=== PATIENT | female | born 1985 | race Caucasian/White ===

== ENCOUNTER → 2023-09-27 13:17 | Outpatient (REF) | payer OTHER, SELFPAY | LOC: PNTC 13:17 | PROVIDERS: ATTENDING PHYSICIAN Obstetrics & Gynecology | DX: Z36.0 Encounter for antenatal screening for chromosomal anomalies (principal); O09.519 Supervision of elderly primigravida, unspecified trimester | CPT/HCPCS: 76811 ==

== ENCOUNTER → 2023-10-17 17:29 | Outpatient (REF) | payer OTHER, SELFPAY | LOC: PNTC 17:29 | PROVIDERS: ATTENDING PHYSICIAN Obstetrics & Gynecology | DX: Z36.83 Encounter for fetal screening for congenital cardiac abnormalities (principal) | CPT/HCPCS: 76815 ==

== ENCOUNTER 2024-02-18 02:34 | Inpatient (IN) | payer OTHER, SELFPAY ==
[2024-02-18 03:13] VITALS: BP 146/84; BMI 34.4
[2024-02-18 03:36] LABS: % Basophils 0.5 % (0-2); % Eosinophils 1.3 % (0-6); % Immature Granulocytes 0.9 % (0-0.5); % Lymphocytes 23.7 % (20.5-51.1); % Monocytes 7.3 % (1.7-9.3); % Neutrophils 66.3 % (42.2-75.2); Absolute Basophils 0.1 10^3/uL (0-0.2); Absolute Eosinophils 0.1 10^3/uL (0-0.7); Absolute Immature Granulocytes 0.1 10^3/uL (0-0.05); Absolute Lymphocytes 2.6 10^3/uL (1.2-3.4); Absolute Monocytes 0.8 10^3/uL (0.1-0.6); Absolute Neutrophils 7.3 10^3/uL (1.4-6.5); Hematocrit 30.8 % (37.0-47.0); Hemoglobin 9.8 g/dL (12.0-16.0); Mean Corp Hgb Conc. 31.8 g/dL (33.0-37.0); Mean Corpuscular Hgb 26.4 pg (27.0-31.0); Mean Platelet Volume 11.7 fL (7.4-10.4); Nucleated Red Blood Cells % 0 %; Platelet Count 269 10^3/uL (130-400); Red Blood Cell Count 3.71 10^6/uL (4.20-5.40); Red Cell Dist. Width 15.1 % (11.5-14.5)
[2024-02-18 03:50] LABS: ALT (SGPT) 15 U/L (0-35); AST (SGOT) 23 U/L (14-36); Albumin 3.7 g/dl (3.5-5.0); Alkaline Phosphatase 212 U/L (38-126); Blood Urea Nitrogen 14 mg/dl (7-17); Calcium 10.7 mg/dl (8.4-10.2); Carbon Dioxide 21 mmol/L (22-30); Chloride 104 mmol/L (98-107); Estimated Creatinine Clearance 105 ml/min; Glucose 89 mg/dl (70-99); Potassium 4.3 mmol/L (3.5-5.1); Sodium 137 mmol/L (135-145); Total Bilirubin 0.2 mg/dl (0.2-1.3); Total Protein 6.9 g/dl (6.3-8.2); eGFR > 60.00
[2024-02-18] MEDS: SYNTHROID 25 MCG PO (09:24)
[2024-02-18] MEDS: PITOCIN 30 UNITS/NSS 500 ML IV (09:25)
[2024-02-18] MEDS: LR 1000 IV ×2 (11:37→16:25)
[2024-02-18] MEDS: SUBLIMAZE 100 MCG EPIDURAL (12:31)
[2024-02-18] MEDS: FENTANYL/BUPIVACAINE 100 EPIDURAL ×2 (12:31→21:05)
[2024-02-19] MEDS: TYLENOL 1000 MG PO (02:28)
[2024-02-19] MEDS: ANCEF 10 IV (02:28)
[2024-02-19] MEDS: BICITRA 30 ML PO (02:28)
[2024-02-19] MEDS: ZITHROMAX INFUSION 250 IV (02:32)
[2024-02-19 03:20] LABS: B.E. Cord ABG -4.1 mMOL/L; Cord ABG Comment CORD BLOOD; HCO3 Cord ABG 21.6 mmol/L; O2 Saturation % Cord ABG 43.7 %; PCO2 Cord ABG 41 mmHg; PO2 Cord ABG 21 mmHg; pH Cord ABG 7.33
[2024-02-19 03:23] LABS: Cord ABG Comment CORD BLOOD
[2024-02-19 03:24] LABS: HCO3 Cord ABG 24.6 mmol/L; O2 Saturation % Cord ABG 18.9 %; PCO2 Cord ABG 56 mmHg; PO2 Cord ABG 12 mmHg; pH Cord ABG 7.25
--- NOTE | 2024-02-19 03:47 | W.IMMPOSTOP ---
Surgical Immed Post Op Note
-
Primary Surgeon: Magui Dominguez DO
Assisting Surgeon: Jeanne Kiser, malted milk supervisor
Pre-op Diagnosis: IUP at 40+4wks, intolerance of labor, inability to augment, Prolonged rupture of membranes, gestational hypertension, meconium-stained fluid
Post-op Diagnosis: same as above
Procedure Performed: PLTCS
Anesthesia Type: Spinal
Specimen / Cultures: Placenta; cord gases: 7.25, BE -4 and 7.33, BE -4.1
Estimated Blood Loss: 475ml
Complications: none
Operative Findings:normal uterus, tubes and ovaries. Female fetus in the cephalic presentation, LOP position. No nuchal cord. Apgars 8/9. Weight 8lbs 6oz. Thin meconium present.
Rick Dominguez DO
[2024-02-19 07:37] LABS: ALT (SGPT) 15 U/L (0-35); AST (SGOT) 26 U/L (14-36); Albumin 3.3 g/dl (3.5-5.0); Alkaline Phosphatase 197 U/L (38-126); Blood Urea Nitrogen 12 mg/dl (7-17); Calcium 8.9 mg/dl (8.4-10.2); Carbon Dioxide 20 mmol/L (22-30); Chloride 104 mmol/L (98-107); Estimated Creatinine Clearance 105 ml/min; Glucose 134 mg/dl (70-99); Potassium 4.4 mmol/L (3.5-5.1); Sodium 136 mmol/L (135-145); Total Bilirubin 0.3 mg/dl (0.2-1.3); Total Protein 6.4 g/dl (6.3-8.2); eGFR > 60.00
[2024-02-19] MEDS: SYNTHROID PO (07:48)
--- NOTE | 2024-02-19 07:59 | W.PN.ANS.POP ---
Anesthesia Post Operative
- Anesthesia Post Op Note
Vital Signs Stable-See Nursing Note: Yes
Airway Patent: Yes
Adequate Pain Control: Yes
Change in Mental Status: No
Current Postoperative Nausea & Vomiting: No
Anesthesia Complications: No
General Anesthetic Recall: No
Unplanned Admission: No
Post Op Hydration Adequate: Yes
[2024-02-19] MEDS: SENOKOT-S 1 TABLET PO (08:00)
[2024-02-19] MEDS: MYLICON 80 MG PO (08:00)
[2024-02-19] MEDS: SYNTHROID 25 MCG PO (08:00)
[2024-02-19] MEDS: PRENATAL PLUS 1 TABLET PO (08:00)
[2024-02-19] MEDS: TORADOL 15 MG IV ×3 (10:23→20:25)
[2024-02-19 11:45] LABS: Protein/creatinine Ratio 0.1; Urine Protein 24 mg/dl
[2024-02-19 14:50] LABS: Hematocrit 29.9 % (37.0-47.0); Hemoglobin 9.7 g/dL (12.0-16.0); Mean Corp Hgb Conc. 32.4 g/dL (33.0-37.0); Mean Corpuscular Volume 83.3 fL (81.0-99.0); Mean Platelet Volume 11.8 fL (7.4-10.4); Platelet Count 284 10^3/uL (130-400); Red Blood Cell Count 3.59 10^6/uL (4.20-5.40); Red Cell Dist. Width 15.4 % (11.5-14.5); White Blood Cell Count 21.8 10^3/uL (4.8-10.8)
[2024-02-19] MEDS: TRANDATE 200 MG PO ×2 (14:56→20:25)
[2024-02-19 15:03] LABS: ALT (SGPT) 17 U/L (0-35); AST (SGOT) 31 U/L (14-36); Albumin 3.4 g/dl (3.5-5.0); Alkaline Phosphatase 159 U/L (38-126); Blood Urea Nitrogen 15 mg/dl (7-17); Calcium 9.1 mg/dl (8.4-10.2); Carbon Dioxide 22 mmol/L (22-30); Chloride 102 mmol/L (98-107); Estimated Creatinine Clearance 93 ml/min; Glucose 166 mg/dl (70-99); Potassium 4.3 mmol/L (3.5-5.1); Sodium 136 mmol/L (135-145); Total Bilirubin 0.3 mg/dl (0.2-1.3); Total Protein 6.5 g/dl (6.3-8.2); eGFR > 60.00
[2024-02-20] MEDS: TORADOL 15 MG IV (02:44)
[2024-02-20] MEDS: SYNTHROID 25 MCG PO (06:44)
[2024-02-20] MEDS: PRENATAL PLUS 1 TABLET PO (07:42)
[2024-02-20] MEDS: TRANDATE 200 MG PO ×2 (07:42→20:20)
[2024-02-20] MEDS: TYLENOL 650 MG PO ×3 (09:09→21:30)
[2024-02-20] MEDS: MOTRIN 600 MG PO ×3 (09:09→21:30)
[2024-02-20] MEDS: SENOKOT-S 1 TABLET PO (09:10)
[2024-02-20] MEDS: MYLICON 80 MG PO (14:53)
[2024-02-20] MEDS: FEOSOL 325 MG PO (20:13)
[2024-02-21] MEDS: TYLENOL 650 MG PO ×4 (05:10→23:21)
[2024-02-21] MEDS: SYNTHROID 25 MCG PO (05:10)
[2024-02-21] MEDS: MOTRIN 600 MG PO ×4 (05:10→23:21)
[2024-02-21] MEDS: FEOSOL 325 MG PO ×2 (08:02→20:26)
[2024-02-21] MEDS: PRENATAL PLUS 1 TABLET PO (08:02)
[2024-02-21] MEDS: SENOKOT-S 1 TABLET PO (08:02)
[2024-02-21] MEDS: TRANDATE 200 MG PO ×2 (08:07→20:26)
[2024-02-21 12:38] LABS: Syphilis/T. pallidum Ab Reflex Negative (Negative)
[2024-02-21] MEDS: MYLICON 80 MG PO (14:56)
[2024-02-22] MEDS: SYNTHROID 25 MCG PO (05:33)
[2024-02-22] MEDS: TRANDATE 400 MG PO ×2 (08:15→20:19)
[2024-02-22] MEDS: MOTRIN 600 MG PO ×3 (08:16→20:58)
[2024-02-22] MEDS: FEOSOL 325 MG PO ×2 (08:16→20:18)
[2024-02-22] MEDS: SENOKOT-S 1 TABLET PO (08:16)
[2024-02-22] MEDS: MYLICON 80 MG PO (08:16)
[2024-02-22] MEDS: TYLENOL 650 MG PO ×3 (08:17→20:57)
[2024-02-22] MEDS: PRENATAL PLUS 1 TABLET PO (08:17)
[2024-02-22 11:41] LABS: % Basophils 0.4 % (0-2); % Eosinophils 2.7 % (0-6); % Immature Granulocytes 1.4 % (0-0.5); % Lymphocytes 23.7 % (20.5-51.1); % Monocytes 5.5 % (1.7-9.3); % Neutrophils 66.3 % (42.2-75.2); Absolute Eosinophils 0.3 10^3/uL (0-0.7); Absolute Immature Granulocytes 0.1 10^3/uL (0-0.05); Absolute Lymphocytes 2.2 10^3/uL (1.2-3.4); Absolute Monocytes 0.5 10^3/uL (0.1-0.6); Absolute Neutrophils 6.1 10^3/uL (1.4-6.5); Hematocrit 28.3 % (37.0-47.0); Hemoglobin 8.8 g/dL (12.0-16.0); Mean Corp Hgb Conc. 31.1 g/dL (33.0-37.0); Mean Corpuscular Hgb 26.8 pg (27.0-31.0); Mean Corpuscular Volume 86.3 fL (81.0-99.0); Mean Platelet Volume 10.4 fL (7.4-10.4); Nucleated Red Blood Cells % 0 %; Platelet Count 278 10^3/uL (130-400); Red Blood Cell Count 3.28 10^6/uL (4.20-5.40); White Blood Cell Count 9.2 10^3/uL (4.8-10.8)
[2024-02-22 11:58] LABS: ALT (SGPT) 105 U/L (0-35); AST (SGOT) 141 U/L (14-36); Albumin 3.4 g/dl (3.5-5.0); Alkaline Phosphatase 163 U/L (38-126); Blood Urea Nitrogen 12 mg/dl (7-17); Calcium 9.3 mg/dl (8.4-10.2); Carbon Dioxide 25 mmol/L (22-30); Chloride 107 mmol/L (98-107); Estimated Creatinine Clearance 105 ml/min; Glucose 96 mg/dl (70-99); Potassium 4.4 mmol/L (3.5-5.1); Sodium 141 mmol/L (135-145); Total Bilirubin 0.2 mg/dl (0.2-1.3); Total Protein 6.2 g/dl (6.3-8.2); eGFR > 60.00
[2024-02-22] MEDS: LR 1000 IV (12:41)
[2024-02-22] MEDS: MAGNESIUM SULFATE 100 IV (12:45)
[2024-02-22] MEDS: MAGNESIUM SULFATE 40 GRAM 1000 IV (13:08)
[2024-02-22 18:28] LABS: Magnesium 4.8 mg/dl (1.6-2.3)
[2024-02-23] MEDS: TYLENOL 650 MG PO ×3 (03:57→21:14)
[2024-02-23] MEDS: MOTRIN 600 MG PO ×3 (03:57→21:13)
[2024-02-23] MEDS: SYNTHROID 25 MCG PO (06:29)
[2024-02-23 06:32] LABS: Hematocrit 29.6 % (37.0-47.0); Hemoglobin 9.3 g/dL (12.0-16.0); Mean Corp Hgb Conc. 31.4 g/dL (33.0-37.0); Mean Corpuscular Hgb 26.5 pg (27.0-31.0); Mean Corpuscular Volume 84.3 fL (81.0-99.0); Mean Platelet Volume 10.2 fL (7.4-10.4); Platelet Count 311 10^3/uL (130-400); Red Blood Cell Count 3.51 10^6/uL (4.20-5.40); Red Cell Dist. Width 16.1 % (11.5-14.5); White Blood Cell Count 8.3 10^3/uL (4.8-10.8)
[2024-02-23 07:11] LABS: ALT (SGPT) 143 U/L (0-35); AST (SGOT) 160 U/L (14-36); Albumin 3.3 g/dl (3.5-5.0); Alkaline Phosphatase 179 U/L (38-126); Blood Urea Nitrogen 10 mg/dl (7-17); Calcium 7.9 mg/dl (8.4-10.2); Carbon Dioxide 26 mmol/L (22-30); Chloride 104 mmol/L (98-107); Estimated Creatinine Clearance 105 ml/min; Glucose 92 mg/dl (70-99); Potassium 4.5 mmol/L (3.5-5.1); Sodium 139 mmol/L (135-145); Total Bilirubin 0.2 mg/dl (0.2-1.3); Total Protein 6.2 g/dl (6.3-8.2); eGFR > 60.00
[2024-02-23] MEDS: TRANDATE 400 MG PO ×2 (07:57→20:05)
[2024-02-23] MEDS: FEOSOL 325 MG PO ×2 (08:02→20:05)
[2024-02-23] MEDS: PRENATAL PLUS 1 TABLET PO (08:02)
[2024-02-23 08:17] LABS: Magnesium 6.3 mg/dl (1.6-2.3)
[2024-02-23] MEDS: MAGNESIUM SULFATE 40 GRAM 1000 IV (08:25)
[2024-02-23] MEDS: MYLICON 80 MG PO (21:13)
[2024-02-23] MEDS: SENOKOT-S 1 TABLET PO (21:14)
[2024-02-24] MEDS: SYNTHROID 25 MCG PO (05:12)
[2024-02-24] MEDS: TYLENOL 650 MG PO (05:12)
[2024-02-24] MEDS: MOTRIN 600 MG PO (05:12)
[2024-02-24] MEDS: PRENATAL PLUS 1 TABLET PO (08:08)
[2024-02-24] MEDS: FEOSOL 325 MG PO (08:08)
[2024-02-24] MEDS: TRANDATE 400 MG PO (08:08)
[2024-02-24 11:04] LABS: ALT (SGPT) 119 U/L (0-35); AST (SGOT) 85 U/L (14-36)
--- NOTE | 2024-02-24 11:26 | W.DS.TRANS ---
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
-
Discharge Instructions:
Discharge Diagnosis/Procedures primary cs
Instructions:
Stand-Alone Forms: LDRP Delivery
Changes to Home Medications: No
Discharge Medications:
DC Medications w/original date entered in [facility]
1 tab PO DAILY Supplement 02/18/24
levothyroxine 25 mcg tablet (Synthroid) 25 mcg PO DAILY@06 Thyroid 02/18/24
ibuprofen 600 mg tablet 600 mg PO Q6HPRN cramps #90 tabs 02/24/24
labetalol 200 mg tablet 400 mg (2 x 200 mg) PO BID #90 tabs 02/24/24
Home Medication Changes
Pending Results: No
Total time spent discharging patient (in min): 20
== END 2024-02-24 13:45 | disposition home or self-care (01) | DRG 788 ==
LOC: LDRP 02:34
PROVIDERS: Obstetrics & Gynecology; Student in an Organized Health Care Education/Training Program; ADMITTING PHYSICIAN Obstetrics & Gynecology
PROC: 10H07YZ Insertion of Other Device into Products of Conception, Via Natural or Artificial Opening (ICD-10-PCS; 2024-02-18)
PROC: 3E0E77Z Introduction of Electrolytic and Water Balance Substance into Products of Conception, Via Natural or Artificial Opening (ICD-10-PCS; 2024-02-18)
PROC: 10D00Z1 Extraction of Products of Conception, Low, Open Approach (ICD-10-PCS; 2024-02-19)
DX: O42.02 Full-term premature rupture of membranes, onset of labor within 24 hours of rupture (principal); Z3A.40 40 weeks gestation of pregnancy; Z37.0 Single live birth; O76 Abnormality in fetal heart rate and rhythm complicating labor and delivery; O48.0 Post-term pregnancy; O99.284 Endocrine, nutritional and metabolic diseases complicating childbirth; E03.9 Hypothyroidism, unspecified; O99.344 Other mental disorders complicating childbirth; F41.9 Anxiety disorder, unspecified; O77.0 Labor and delivery complicated by meconium in amniotic fluid; O62.1 Secondary uterine inertia; O13.4 Gestational [pregnancy-induced] hypertension without significant proteinuria, complicating childbirth; O90.81 Anemia of the puerperium; D64.9 Anemia, unspecified; R51.9 Headache, unspecified; R04.0 Epistaxis; O14.15 Severe pre-eclampsia, complicating the puerperium; Z88.0 Allergy status to penicillin; Z79.890 Hormone replacement therapy
CPT/HCPCS: 88307; 80053; 82570; 82803; 83735; 84156; 84450; 84460; 85025; 85027; 86780; 86850; 86900; 86901

== ENCOUNTER 2024-03-05 15:01 | Observation (INO) | payer OTHER, SELFPAY ==
[2024-03-05 15:08] VITALS: BP 123/81; BMI 22.3
[2024-03-05 15:36] LABS: Hematocrit 36.9 % (37.0-47.0); Hemoglobin 11.1 g/dL (12.0-16.0); Mean Corp Hgb Conc. 30.1 g/dL (33.0-37.0); Mean Corpuscular Hgb 26.4 pg (27.0-31.0); Mean Corpuscular Volume 87.6 fL (81.0-99.0); Platelet Count 282 10^3/uL (130-400); Red Blood Cell Count 4.21 10^6/uL (4.20-5.40); Red Cell Dist. Width 17.2 % (11.5-14.5); White Blood Cell Count 7.7 10^3/uL (4.8-10.8)
[2024-03-05 15:50] LABS: ALT (SGPT) 64 U/L (0-35); AST (SGOT) 49 U/L (14-36); Albumin 4.4 g/dl (3.5-5.0); Alkaline Phosphatase 126 U/L (38-126); Blood Urea Nitrogen 17 mg/dl (7-17); Calcium 9.9 mg/dl (8.4-10.2); Carbon Dioxide 28 mmol/L (22-30); Chloride 104 mmol/L (98-107); Estimated Creatinine Clearance 83 ml/min; Glucose 110 mg/dl (70-99); Potassium 4.6 mmol/L (3.5-5.1); Sodium 142 mmol/L (135-145); Total Bilirubin 0.5 mg/dl (0.2-1.3); Total Protein 7.4 g/dl (6.3-8.2); eGFR > 60.00
[2024-03-05 16:04] LABS: Urine Protein < 5 mg/dl
== END 2024-03-05 17:05 | disposition home or self-care (01) ==
LOC: LDRP 15:01
PROVIDERS: ADMITTING PHYSICIAN Obstetrics & Gynecology
DX: R51.9 Headache, unspecified (principal); H53.8 Other visual disturbances; Z88.0 Allergy status to penicillin
CPT/HCPCS: 80053; 82570; 84156; 85027; G0378

== ENCOUNTER → 2024-07-26 14:46 | Outpatient (REF) | payer OTHER, SELFPAY | LOC: RCS 14:46 | PROVIDERS: ATTENDING PHYSICIAN Internal Medicine Cardiovascular Disease; FAMILY PHYSICIAN Physician Assistant Medical | DX: R00.2 Palpitations (principal); R03.0 Elevated blood-pressure reading, without diagnosis of hypertension | CPT/HCPCS: 93306 ==